=== PATIENT | male | born 1960 | race Caucasian/White ===

== ENCOUNTER 2022-03-18 13:21 | Inpatient (IN) | payer OTHER ==
[~2022-03-18] VITALS: Ht 182.9 cm; Wt 103.8 kg
[2022-03-18 13:41] LABS: Mean Corpuscular HGB Conc 34.4 g/dL (31.5-36.5); Platelet Count 315 K/mm3 (150-400); RDW Coefficient Variation 12.1 % (11.7-14.2)
[2022-03-18 13:47] LABS: BASOPHILS ABSOLUTE AUTO 0.02 K/mm3 (0.00-0.23); BASOPHILS PERCENT AUTO 0 % (0-2); EOSINOPHILS ABSOLUTE AUTO 0.01 K/mm3 (0.00-0.68); EOSINOPHILS PERCENT AUTO 0 % (0-6); Hematocrit 48.9 % (37.0-53.0); Hemoglobin 16.8 g/dL (13.5-17.5); IMMATURE GRAN PERCENT AUTO 1 % (0-1); LYMPHOCYTES ABSOLUTE AUTO 1.31 K/mm3 (0.84-5.20); LYMPHOCYTES PERCENT AUTO 7 % (21-46); MONOCYTES ABSOLUTE AUTO 0.86 K/mm3 (0.16-1.47); MONOCYTES PERCENT AUTO 5 % (4-13); Mean Corpuscular HGB 28.2 pg (26.0-34.0); Mean Corpuscular Volume 82 fL (80-100); Mean Platelet Volume 9.1 fL (9.1-12.4); NEUTROPHILS ABSOLUTE AUTO 16.01 K/mm3 (1.96-9.15); NEUTROPHILS PERCENT AUTO 87 % (41-73); RDW Standard Deviation 35.7 fL (35.1-46.3); Red Blood Cell Count 5.96 M/mm3 (4.30-5.90); White Blood Cell Count 18.31 K/mm3 (4.00-11.30)
[2022-03-18 14:05] LABS: Alanine Aminotransfer (ALT/SGP 50 U/L (12-78); Albumin, Blood 3.9 g/dL (3.4-5.0); Albumin/Globulin Ratio 0.9 (0.8-1.8); Alk Phos 172 U/L (50-136); Anion Gap 19 mmol/L (6-16); Aspartate Aminotrans (AST/SGOT 36 U/L (12-37); Bilirubin, Total 0.3 mg/dL (0.1-1.0); Blood Urea Nitrogen 18 mg/dL (8-24); Bun/Creatinine Ratio 21.9 (12.0-20.0); CO2, Blood 18 mmol/L (21-32); Calcium, Blood 9.1 mg/dL (8.5-10.1); Chloride, Blood 95 mmol/L (98-108); Creatinine, Blood 0.82 mg/dL (0.60-1.20); Ethanol (Alcohol), Blood, Med <3 mg/dL; Globulin, Blood 4.2 g/dL (2.2-4.0); Glomerular Filtration Rate 100 (60-); Glucose, Blood 577 mg/dL (70-99); Potassium, Blood 3.2 mmol/L (3.5-5.5); Sodium, Blood 132 mmol/L (136-145); Total Protein, Blood 8.1 g/dL (6.4-8.2)
[2022-03-18 14:08] LABS: U Amphetamine Screen Not Detected; U Barbituate Screen Not Detected; U Benzodiazapine Screen Not Detected; U Buprenorphine Screen Not Detected; U Cannabinoids Screen Not Detected; U Cocaine Screen Not Detected; U Methadone Screen Not Detected; U Methamphetamine Screen Not Detected; U Opiates Screen Not Detected; U Oxycodone Screen Not Detected; U Phencyclidine Screen Not Detected; U Propoxyphene Screen Not Detected
[2022-03-18 14:42] LABS: PCO2 Arterial 44.5 mmHg (35-45); PO2 Arterial 65.3 mmHg (80-100); pH Blood Arterial 7.29 (7.35-7.45)
--- NOTE | 2022-03-18 19:24 | NUR ---
ADMIT TO ICU @ 1630. PT FOUND DOWN AT HOME AND HAD TOTAL OF 5 SEIZURES PER [facility]. PT IS INTUBATED& MECHANICAL VENTILATED. PUPILS 3 MM BRISK. PT SEDATED ON PROPOFOL @ 40 MCG/KG/MIN. ROCHE TEMP 101.6-BLANKETS REMOVED FROM PT. ECG SHOWS ST WITH RATE 100-110'S. DP/PT PULSES PALPABLE. NO NOTED EDEMA. ETT 8.0/24 @ LIP TO VENT:AC 18, TV 400, PEEP 5, FIO2 50%. ASPIRATION PNEUMONIA IS SUSPECTED. DR. ELIZABETH HAS BEEN CONSULTED. SPUTUM TO SENT. LUNGS WITH COARSE RHONCHI TO UPPER LOBES AND DIMINISHED IN THE BASES. OGT TO LOW SUCTION. ABDOMEN APPEARS DISTENDED AND SEMI-FIRM. ROCHE TO BSD WITH SMALL AMOUNT OF YELLOW URINE TO UROMETER. SKIN IS PALE AND WARM WITH GOOD CAP REFILL. NO NOTED SKIN BREAKDOWN. INFUSING KCL REPLETION, LR @ 150 CC/HR, INSULIN DRIP AT 4 UNITS/HR-LAST CBG 478. [facility] PT SMOCKING MACHINE OPERATOR IS HIS SISTER KORIN. SHE HAS BEEN UPDATED TO PT STATUS. ACCORDING TO KORIN, PT DOES NOT HAVE AN ADVANCED DIRECTIVE AND SHE STATES THAT HE WOULD WANT TO REMAIN A FULL CODE. PT SISTER DID REPORT THAT PT HAS BEEN DEPRESSED AND HAS NOT BEEN TAKING HIS MEDICATIONS OR TAKING CARE OF HIMSELF FOR APROXIMATELY 5 MONTHS. ACCORDING TO PT SISTER, PT IS A TWIN AND PT TWIN SISTER 5 MONTHS AGO.
[2022-03-18 20:05] LABS: Base Excess Venous 3.2 mmol/L; Bicarbonate Venous 27.1 mmol/L (24.0-30.0); PCO2 Venous 37.1 mmHg (38-42); pH Blood Venous 7.47 (7.34-7.37)
[2022-03-18 20:23] LABS: Source, Urine Foley catheter
[2022-03-18 20:28] LABS: Bilirubin, Urine Neg (Neg); Blood, Urine 5+ (Neg); Glucose Qualitative, Urine 4+ (Neg); Ketones, Urine 3+ (Neg); Leukocyte Esterase, Urine Neg (Neg); Nitrite, Urine Neg (Neg); Protein, Urine 2+ (Neg); Specific Gravity, Urine 1.015 (1.003-1.022); Urobilinogen, Urine NORM (Normal)
[2022-03-18 20:29] LABS: Bun/Creatinine Ratio 26.1 (12.0-20.0); Calcium, Blood 9.3 mg/dL (8.5-10.1); Creatinine, Blood 0.88 mg/dL (0.60-1.20); Magnesium, Blood 2.3 mg/dL (1.6-2.4); Potassium, Blood 3.6 mmol/L (3.5-5.5)
[2022-03-18 20:33] LABS: Appearance, Urine Clear (Clear); Color, Urine Yellow (P-Yellow)
[2022-03-18 20:36] LABS: Bacteria Not Seen /hpf; Red Blood Cells, Urine TNTC /hpf (0-2); Squamous Epithelial Cells Not Seen /hpf (Few); Uric Acid Crystals Mod /hpf; White Blood Cells, Urine Not Seen /hpf (0-5)
[2022-03-19 03:40] LABS: Hemoglobin 15.6 g/dL (13.5-17.5); Mean Corpuscular HGB 28.4 pg (26.0-34.0); Mean Corpuscular HGB Conc 35.5 g/dL (31.5-36.5); Mean Corpuscular Volume 80 fL (80-100); Mean Platelet Volume 8.8 fL (9.1-12.4); Platelet Count 213 K/mm3 (150-400); RDW Coefficient Variation 12.2 % (11.7-14.2); RDW Standard Deviation 35.2 fL (35.1-46.3); White Blood Cell Count 13.84 K/mm3 (4.00-11.30)
--- NOTE | 2022-03-19 05:41 | NUR ---
SHIFT SUMMERY PT CONTINUES TO BE VENTILATED, OXYGEN SAT HAVE REMAINED >95% THROUGHOUT THE NIGHT. PT IS SR ON THE PACK OPERATOR, BP WNL. HE HAS BEEN FEBRILE BUT LAST TEMP WAS IMPROVING AT 99.6. HE HAS A ROCHE CATH DRAINING DARK YELLOW URINE. UA SENT TO LAB. HE IS SEDATED W/PROPOFOL AT THIS TIME. HE HAS AN OG TUBE THAT IS CLAMPED. C-COLLAR IN PLACE WAITING MD APPROVAL FOR REMOVAL. PT HAD NO SEIZURE ACTIVITY OVERNIGHT. NO ACUTE CHANGES AND NO ACUTE DISTRESS THIS SHIFT.
[2022-03-19 05:42] LABS: Bun/Creatinine Ratio 18.9 (12.0-20.0); Calcium, Blood 8.6 mg/dL (8.5-10.1); Creatinine, Blood 1.69 mg/dL (0.60-1.20); Potassium, Blood 3.7 mmol/L (3.5-5.5)
--- NOTE | 2022-03-19 08:00 | NUR ---
PT REMAINS SEDATED, INTUBATED, AND RESTRAINED. C-COLLAR REMAINS IN PLACE. PT GIVEN SEDATION VACATION X 30 MINUTES. PT OPENING HIS EYES, BUT NOT TO COMMAND. PT PULLING ON RESTRAINTS AND MOVING LOWER EXTREMITIES, BUT NOT TO COMMANDS. PT STARTED COUGHING AND WAS NOT COMPLIANT WITH VENTILATOR-PROPOFOL DRIP RESUMED @ 40 MCG/KG/MIN. ECG SHOWS SR TO ST WITH RATE 90-100'S. SBP TRENDING 140-150'S. TEMP 99.7. NO NOTED EDEMA. DP/PT PULSES 2+. ETT TO VENT:AC18, TV 500, PEEP 5, FIO2 30% LUNGS WITH COARSE RHONCHI TO UPPER LOBES AND DIMINISHED IN THE BASES. ETT SUCTION PRODUCTIVE OF LARGE AMOUNT OF THICK, BROWN SECRETIONS-SPUTUM SENT. OGT TO LOW CONTINUOUS SUCTION AND SCANT BROWN, LIQUID DRAINAGE. ABDOMEN OBESE, BUT SOFT. ROCHE TO BSD WITH ADEQUATE AMOUNT OF YELLOW URINE TO UROMETER. SKIN IS C/D/I. CBG-395 COVERED PER SLIDING SCALE. WILL CONTACT DR. CHICAS TO DISCUSS INCREASING LONG ACTING INSULIN.
--- NOTE | 2022-03-19 10:00 | NUR ---
CBG 334 COVERED PER SLIDING SCALE. DR. CHICAS NOTIFIED-PLAN TO INCREASE LONG ACTING INSULIN. PT SISTER KORIN IN FOR VISIT-FULL UPDATE GIVEN.
--- NOTE | 2022-03-19 11:45 | NUR ---
PT HAS BEEN OFF OF PROPOFOL SINCE 1114. PT IGIUGIG ACCORDING TO HIS SISTER KORIN. PT OPENED HIS EYES TO VOICE AND SEEMED TO TRACK, BUT NOT FOLLOWING COMMANDS. PT COUGHING AND GAGGING ON ETT. DR. GAGE AT BEDSIDE-PT PLACED ON PS 7, PEEP 5, FIO2 30%-SATS>90% .CBG 295 COVERED PER SLIDING SCALE AND LANTUS 20 UNITS SC GIVEN-SEE EMAR. OGT NOTED WITH DARK, BROWN/BLACK LIQUID DRAINAGE. ETT SUCTION CONTINUES TO BE PRODUCTIVE OF LARGE AMOUNT OF THICK, BROWN SPUTUM.
--- NOTE | 2022-03-19 12:15 | NUR ---
DR. GAGE AT BEDSIDE. PT EYES OPEN AND HE CONTINUES TO TRACK, BUT HE DOES NOT FOLLOW COMMANDS. PT PULLING ON RESTRAINTS AND REACHING TOWARDS ETT. HR 120-130'S AND SBP 200'S. SPO2 DROPPED 85% ON PS 7. VENT SETTINGS CHANGED BACK TO AC 18, TV 500, PEEP 5 , FIO2 35%. PROPOFOL DRIP RESUMED @ 50 MCG/KG/MIN AND PT MED WITH FENTANYL 50 MCG IVP X 1. PT APPEARED TO HAVE A SEIZURE-UPPER EXTREMITIES MOVING IN DECEREBRATE MANOR AND TONIC/CLONIC MOVEMENT NOTED. PT MED WITH ATIVAN 2 MG IVP X 1.
--- NOTE | 2022-03-19 14:00 | NUR ---
PT RESTING QUIETLY ON VENT WITH PROPOFOL @ 50 MCG/KG/MIN. NO FURTHER SEIZURE ACTIVITY NOTED. PT SISTER HIM REMAINS AT BEDSIDE.
--- NOTE | 2022-03-19 16:00 | NUR ---
PT REMAINS INTUBATED AND SEDATED ON PROPOFOL @ 50 MCG/KG/MIN. NO FURTHER SEIZURE ACTIVITY NOTED. PT REMAINS FEBRILE. ECG CONTINUES SR TO ST WITH RATE 90-110'S. SBP TRENDING 100-110'S. LUNGS REMAIN COARSE TO UPPER LOBES AND DIMINISHED IN THE BASES. SATS>90% ON FIO2 30%. ETT SUCTION CONTINUES TO BE PRODUCTIVE OF LARGE AMOUNT OF THICK, BROWN SECRETIONS. OGTF VHP @ 25 CC/HR WITH H20 30 CC FLUSH EVERY 4 HOURS.
--- NOTE | 2022-03-19 18:00 | NUR ---
SBP TRENDING IN THE 90'S. PROPOFOL DRIP DECREASED TO 40 MCG/KG/MIN. CBG 212 COVERED PER SLIDING SCALE. CBG EVERY 6 HOURS NOW. ROCHE OUTPUT 350 CC THIS SHIFT.
[2022-03-20 03:15] LABS: BASOPHILS ABSOLUTE AUTO 0.07 K/mm3 (0.00-0.23); BASOPHILS PERCENT AUTO 1 % (0-2); EOSINOPHILS ABSOLUTE AUTO 0.15 K/mm3 (0.00-0.68); EOSINOPHILS PERCENT AUTO 1 % (0-6); Hematocrit 41.3 % (37.0-53.0); Hemoglobin 14.3 g/dL (13.5-17.5); IMMATURE GRAN ABSOLUTE AUTO 0.03 K/mm3 (0.00-0.10); IMMATURE GRAN PERCENT AUTO 0 % (0-1); LYMPHOCYTES ABSOLUTE AUTO 1.92 K/mm3 (0.84-5.20); LYMPHOCYTES PERCENT AUTO 16 % (21-46); MONOCYTES ABSOLUTE AUTO 1.12 K/mm3 (0.16-1.47); MONOCYTES PERCENT AUTO 9 % (4-13); Mean Corpuscular HGB 28.1 pg (26.0-34.0); Mean Corpuscular HGB Conc 34.6 g/dL (31.5-36.5); Mean Corpuscular Volume 81 fL (80-100); Mean Platelet Volume 8.9 fL (9.1-12.4); NEUTROPHILS ABSOLUTE AUTO 8.83 K/mm3 (1.96-9.15); NEUTROPHILS PERCENT AUTO 73 % (41-73); Platelet Count 200 K/mm3 (150-400); RDW Coefficient Variation 12.2 % (11.7-14.2); Red Blood Cell Count 5.09 M/mm3 (4.30-5.90); White Blood Cell Count 12.12 K/mm3 (4.00-11.30)
[2022-03-20 05:37] LABS: pH Blood Arterial 7.36 (7.35-7.45)
[2022-03-20 05:38] LABS: PCO2 Arterial 35.2 mmHg (35-45); PO2 Arterial 81.8 mmHg (80-100)
--- NOTE | 2022-03-20 08:00 | NUR ---
Assumed care for pt at 0730. He is intubated w/ 8.0 ETT @ 24 cm at teeth. Vent settings 18/500/5/30%. Receiving Propofol gtt @ 40 mcg/kg/min. Vital HP tube feed @ 25 ml/hr w/ goal of 45 ml/hr, 30 ml flush q4hr. Pickard catheter remains in place. x2 peirpheral IVs in right arm. Sedation vacation attempted twice yesterday.
--- NOTE | 2022-03-20 09:45 | NUR ---
Pt on sedation vacation at 0921 w/ vent placed on Spontaneous mode and Propofol stopped.
[2022-03-20 10:24] LABS: Bun/Creatinine Ratio 13.8 (12.0-20.0); Calcium, Blood 8.8 mg/dL (8.5-10.1); Creatinine, Blood 3.77 mg/dL (0.60-1.20); Magnesium, Blood 2.6 mg/dL (1.6-2.4); Phosphorus, Blood 5.6 mg/dL (2.5-4.9); Potassium, Blood 3.6 mmol/L (3.5-5.5)
--- NOTE | 2022-03-20 11:00 | NUR ---
Pt reamins on Spontaneous vent setting and propofol has remained off. He is following commands, will squeeze both hands, track with his eyes and wiggle his toes. Plan is to extubate pt.
--- NOTE | 2022-03-20 11:59 | NUR ---
Pt successfully extubated at 1152. Tube feed had been stopped prior to extubation. Pt A&Ox3 and protecting his airway, strong cough w/ brown sputum. Placed on 3 lpm o2 via NC.
--- NOTE | 2022-03-20 17:51 | NUR ---
Pt was extubated at noon today and placed on 3 lpm o2 via NC; his OG tube was removed at the same time and tube feed had been stopped prior to removal. Pt protected his airway post-extubation and remained on 3 lpm o2 via NC for the rest of the shift. Continued to receive LR gtt @ 150 ml/hr. Pt urinated >1200 ml during dayshift today. No seizure-activity today.
--- NOTE | 2022-03-20 19:35 | NUR ---
ASSUMPTION OF CARE/ASSESSMENT: ASSUMED CARE OF PT AT 1900. PT IS A&O X 3; FOLLOWING COMMANDS. PT IS SOFT SPOKEN AND SLOW TO RESPOND. PT CURRENTLY ON NC @ 4LPM WITH LUNGS SOUNDS CLEAR, SPO2 94<, RR 20-26, AND NO C/O SOB. PT SINUS TACHYCARDIA ON MONITOR WITH HR IN THE 90-100'S, SBP 140-150'S, AND NO C/O CHEST PAIN AT THIS TIME. PT HAS HYPOACTIVE BS IN ALL QUADRANTS. PT IS NPO R/T FAILED SWALLOW EVAL LAST SHIFT. PT REQUESTED FOOD/DRINK AND EDUCATED ON NPO STATUS, PT UNDERSTANDS AND COOPERATVIE WITH NPO STATUS. PT HAS ROCHE IN PLACE AND DRAINING TO GRAVITY; URINE MICHEL, CLEAR. PPP X 4, 20 G PIV TO RH AND RAC. PT HAS LR GTT @ 2150 MLS/HR. BED LOWERED, CALL LIGHT IN REACH, WILL CONTINUE TO MONITOR.
[2022-03-21 04:04] LABS: BASOPHILS ABSOLUTE AUTO 0.03 K/mm3 (0.00-0.23); BASOPHILS PERCENT AUTO 0 % (0-2); EOSINOPHILS ABSOLUTE AUTO 0.15 K/mm3 (0.00-0.68); EOSINOPHILS PERCENT AUTO 2 % (0-6); Hematocrit 42.7 % (37.0-53.0); Hemoglobin 14.7 g/dL (13.5-17.5); IMMATURE GRAN ABSOLUTE AUTO 0.03 K/mm3 (0.00-0.10); IMMATURE GRAN PERCENT AUTO 0 % (0-1); LYMPHOCYTES ABSOLUTE AUTO 1.05 K/mm3 (0.84-5.20); LYMPHOCYTES PERCENT AUTO 13 % (21-46); MONOCYTES ABSOLUTE AUTO 0.78 K/mm3 (0.16-1.47); MONOCYTES PERCENT AUTO 9 % (4-13); Mean Corpuscular HGB 27.9 pg (26.0-34.0); Mean Corpuscular HGB Conc 34.4 g/dL (31.5-36.5); Mean Corpuscular Volume 81 fL (80-100); Mean Platelet Volume 8.8 fL (9.1-12.4); NEUTROPHILS ABSOLUTE AUTO 6.26 K/mm3 (1.96-9.15); NEUTROPHILS PERCENT AUTO 75 % (41-73); Platelet Count 190 K/mm3 (150-400); RDW Coefficient Variation 11.9 % (11.7-14.2); RDW Standard Deviation 35.3 fL (35.1-46.3); Red Blood Cell Count 5.26 M/mm3 (4.30-5.90)
[2022-03-21 04:49] LABS: Bun/Creatinine Ratio 16.7 (12.0-20.0); Calcium, Blood 8.9 mg/dL (8.5-10.1); Creatinine, Blood 3.11 mg/dL (0.60-1.20); Magnesium, Blood 2.5 mg/dL (1.6-2.4); Potassium, Blood 3.2 mmol/L (3.5-5.5)
--- NOTE | 2022-03-21 06:43 | NUR ---
SHIFT SUMMARY: NO ACUTE CHANGES OVER NIGHT. PT SPEECH SLOWLY IMPROVED OVER NIGHT WITH ARTICULATION. PT ADAMENT ABOUT GETTING OUT OF BED AND EDUCATED ABOUT BEDREST THROUGHOUT THE NIGHT. PT HAD 2900 URINE OUTPUT. PT STATES THAT HE NEEDS TO HAVE A BOWEL MOVEMENT BUT CANNOT GO TO THE BATHROOM ON THE BEDPAN; ATTENDS IN PLACE AND NO BOWEL MOVEMENT THIS SHIFT. BED LOWERED, CALL LIGHT IN REACH, WILL CONTINUE TO MONITOR UNTIL ONCOMING RN ARRIVES.
--- NOTE | 2022-03-21 14:48 | NUR ---
business office technician has arrived and is actively running the test at bedside. Pt has also worked w/ Speech and PT/OT.
--- NOTE | 2022-03-21 17:20 | NUR ---
software technical lead unable to complete test due to computer issues; apparently the program on her computer recived an update yesterday but would not complete the test. She was unable to reach tech support this late in the evening. Will have to re-attempt at a later date.
--- NOTE | 2022-03-21 18:42 | NUR ---
Pt worked w/ Speech, PT and OT today. He stood and pivoted w/ a walker and used the bedside commode, he remains a x2 assist due to weakness, poor balance and impulsivity. He had a large BM this morning and removed his own silva around 1000 this morning. He has used the urinal throughout the day w/o difficulty. received a bed bath this evening. Attempted EEG this afternoon w/o success, [employer] network control technician will return tomorrow to attempt again. Notified Dr Winters. Also increased pt Glargine dosing today due to persistent hyperglycemia.
--- NOTE | 2022-03-22 01:00 | NUR ---
PT UPDATE: MIDNIGHT CBG CHECK CAME BACK AT 439. DR MUNIZ CALLED AND VERBAL ORDERS FOR 18 UNITS ONE TIME DOSE OF HUMALOG RECIEVED, WELL TO [facility] AGAIN IN 2 HOURS. WILL CONTINUE TO MONITOR
[2022-03-22 03:42] LABS: Hematocrit 42.8 % (37.0-53.0); Hemoglobin 14.7 g/dL (13.5-17.5); Mean Corpuscular HGB 27.9 pg (26.0-34.0); Mean Corpuscular HGB Conc 34.3 g/dL (31.5-36.5); Mean Corpuscular Volume 81 fL (80-100); Mean Platelet Volume 8.7 fL (9.1-12.4); Platelet Count 196 K/mm3 (150-400); RDW Coefficient Variation 11.9 % (11.7-14.2); RDW Standard Deviation 35.6 fL (35.1-46.3); Red Blood Cell Count 5.27 M/mm3 (4.30-5.90); White Blood Cell Count 6.39 K/mm3 (4.00-11.30)
[2022-03-22 04:05] LABS: Bun/Creatinine Ratio 21.9 (12.0-20.0); Calcium, Blood 9.2 mg/dL (8.5-10.1); Creatinine, Blood 1.6 mg/dL (0.60-1.20); Magnesium, Blood 2.1 mg/dL (1.6-2.4); Phosphorus, Blood 2.3 mg/dL (2.5-4.9)
--- NOTE | 2022-03-22 06:42 | NUR ---
SHIFT SUMMARY: NO ACUTE CHANGES THIS SHIFT. PT HAS BEEN USING THE URINAL WITH SBA AT THE END OF THE BED; ABOUT 1200 URINE OUTPUT THIS SHIFT. PT HAS A LARGE BOWEL MOVEMENT THIS SHIFT WITH A 2 PERSON ASSIST TO THE BEDSIDE COMMODE. PT REMAINS IMPLULSIVE AND ATTEMPTS TO NEGOTIATE WITH STAFF REGARDING MORE INDEPENDENCE WITH ADL'S BUT PT STILL WEAK AND HIGH FALL RISK. PT NOW ON RA AND SPO2 MAINTAINING 97<. PT DOES NOT USE CALL LIGHT AND CONTINUES TO TRY AND GET OUT OF BED WITHOUT ASSISTANCE. PT HAS BEEN DRINKING LOTS OF NECTAR THICK WATER. WILL CONTINUE TO MONITOR UNTIL ONCOMING RN ARRIVES.
--- NOTE | 2022-03-22 08:00 | NUR ---
Assumed care for pt at 0700. Pt is A&Ox4, GCS 15, is now on room air and maintaing his 02 saturation. LR gtt @ 150 ml/hr, K Phos replacment ordered, waiting for pharmacy to prepare. Plan to downgrade pt status today.
--- NOTE | 2022-03-22 13:26 | NUR ---
technical spec Una is at bedside. Pt is sitting upright in a chair for both lunch and this procedure.
--- NOTE | 2022-03-22 14:45 | NUR ---
[employer] rep called and advised that pt has had only "a few" discharge from his pacemaker, that the base rate is set to 50 and that it is "working beautifully."
--- NOTE | 2022-03-22 15:30 | NUR ---
EEG test completed successfully.
--- NOTE | 2022-03-22 18:00 | NUR ---
Dr. Wolff at bedside evaluating PleurX. He removed some sutures and redressed the PleurX. It remains in place.
--- NOTE | 2022-03-23 05:28 | NUR ---
SHIFT SUMMARY: NO ACUTE CHANGES THIS SHIFT. PT REMAINS A&O X 4. PT ATTEMPTS TO GET OUT OF BED WITHOUT SBA, REMAINS ON CENTRAL MONITORING. PT ON RA WITH SPO2 96<, CLEAR LUNG SOUNDS. PT SBP 150'S AND HR IN THE 80'S. PT PERIODICALLY INCONTINUENT WITH BRIEF IN PLACE; PT SBA TO TOILET WITH WALKER AND MOBILITY IS IMPROVING. PT SPEECH IMPROVING FROM LAST SHIFT. PT VERY IMPATIENT REGARDING DISCHARGES AND CONTINUES TO STATE DESIRES TO GO HOME. PT REMAINS AFEBRILE. WILL CONTINUE TO MONITOR UNTIL ONCOMING RN ARRIVES.
--- NOTE | 2022-03-23 08:20 | NUR ---
Pt is now under medical floor orders, w/ tele removed as well. Pt still receiving LR @ 150 ml/hr. Pt remains impulsive, often being found at the side of the bed and not calling for assistance. Still a x1 assist when ambulating w/ a walker due to balance.
[2022-03-23 08:51] LABS: BASOPHILS ABSOLUTE AUTO 0.02 K/mm3 (0.00-0.23); BASOPHILS PERCENT AUTO 0 % (0-2); EOSINOPHILS ABSOLUTE AUTO 0.25 K/mm3 (0.00-0.68); EOSINOPHILS PERCENT AUTO 4 % (0-6); Hematocrit 38.7 % (37.0-53.0); Hemoglobin 13.6 g/dL (13.5-17.5); IMMATURE GRAN ABSOLUTE AUTO 0.01 K/mm3 (0.00-0.10); IMMATURE GRAN PERCENT AUTO 0 % (0-1); LYMPHOCYTES ABSOLUTE AUTO 1.22 K/mm3 (0.84-5.20); LYMPHOCYTES PERCENT AUTO 21 % (21-46); MONOCYTES PERCENT AUTO 10 % (4-13); Mean Corpuscular HGB 28.3 pg (26.0-34.0); Mean Corpuscular HGB Conc 35.1 g/dL (31.5-36.5); Mean Corpuscular Volume 81 fL (80-100); Mean Platelet Volume 8.8 fL (9.1-12.4); NEUTROPHILS ABSOLUTE AUTO 3.66 K/mm3 (1.96-9.15); NEUTROPHILS PERCENT AUTO 64 % (41-73); Platelet Count 169 K/mm3 (150-400); RDW Coefficient Variation 11.3 % (11.7-14.2); RDW Standard Deviation 33.4 fL (35.1-46.3); Red Blood Cell Count 4.81 M/mm3 (4.30-5.90); White Blood Cell Count 5.76 K/mm3 (4.00-11.30)
[2022-03-23 09:05] LABS: Bun/Creatinine Ratio 18.1 (12.0-20.0); Creatinine, Blood 1.05 mg/dL (0.60-1.20); Magnesium, Blood 1.7 mg/dL (1.6-2.4); Phosphorus, Blood 3.1 mg/dL (2.5-4.9)
--- NOTE | 2022-03-23 12:25 | NUR ---
Called report to [facility] DOBB[facility] for room 359. Speech is currently at bedside evaluating the pt; he will be transported afterwards.
--- NOTE | 2022-03-23 14:16 | NUR ---
REPORT RECEIVED FROM DUNCAN DOBBINS. PT TRANSFERRED TO ROOM 359 VIA WC AND WAS A/O X 4 STANDBY ASSIST UPON ARRIVAL. PT ABLE TO AMBULATE STEADY ON FEET WITH GB. PT REPORTED HIS WAS WRONG WHEN QUESTIONED. PT WAS ACTUALLY BORN IN 1960. VERIFIED DATE WITH RECORDS FROM THE [facility]. NOTIFIED ADMITTING OF ERROR. NEW ARM BAND PRINTED FOR PATIENT AND PLACED. PT DENIES PAIN, NAUSEA, SOB, DIZZINESS. PT SOON AFTER ARRIVAL BEGAN WORKING WITH OT. PT DENIED ANY OTHER CONCERNS OR NEEDS AT THIS TIME.
--- NOTE | 2022-03-23 16:54 | NUR ---
SHIFT SUMMARY: PT A/O X 4, STANDBY ASSIST. PT PLEASANT AND COOPERATIVE WITH CARE. PT REPORTED "MIGRAINE HEADACHE THIS AFTERNOON AND WAS GIVEN TYLENOL WHICH WAS INEFFECTIVE. PT COULD NOT HAVE IMITREX UNTIL 1800 PER PHARMACY [facility] AND PT NOTIFIED OF THIS. PT REPORTED HE COULD WAIT UNTIL 1800 FOR MEDICATION. PT HAS HAD PT/OT SESSION TODAY. BS STILL ELEVATED. VISITING WITH FAMILY AT THIS TIME. PER PT/FAMILY THEY HAVE DECIDED PT SHOULD GO TO [facility] INSTEAD OF [facility]. INFORMED THEM TO PLEASE REACH OUT TO CARE MANAGEMENT IN THE MORNING AND I WOULD NOTIFY RN OTOLARYNGOLOGY AND PLACE THIS NOTE FOR MD. PT WILL NEED EDUCATION ON DIABETIC MANAGEMENT AND ON INSULIN ADMINISTRATION AND PRESCRIPTIONS FOR ALL SUPPLIES IF PT IS TO BE DISCHARGED WITH INSULIN MEDICATIONS.
--- NOTE | 2022-03-24 06:14 | NUR ---
PATIENT ALERT AND ORIENTED WITH SHORT TERM MEMORY LOSS. PATIENT UNSTEADY ON FEET AND BECOMES AGITATED WHEN STAFF REDIRECTS HIM. PATIENT DOES NOT WANT TO FOLLOW DIRECTION AND OVERESTIMATES INDEPENDENCE. I EXPLAINED THAT WE ARE ONLY REDIRECTING FOR HIS SAFETY AND THAT STAFF NEEDS TO BE PRESENT WHEN HE NEEDS TO GET UP TO USE THE RESTROOM. PATIENT DENIES REDIRECTION AND DENIES THAT HE IS UNSTEADY ON FEET. PATIENT ALSO BLOCKED HIS DOOR WITH TRASH CANS AND WALKER.
[2022-03-24] MEDS ORDERED: LEVE500 PO (15:54)
[2022-03-24] MEDS ORDERED: LISI20 PO (15:54)
[2022-03-24] MEDS ORDERED: HYDCHL25 PO (15:55)
[2022-03-24] MEDS ORDERED: METO25ER PO (15:55)
[2022-03-24] MEDS ORDERED: JARDIANCE25 MG PO (15:57)
[2022-03-24] MEDS ORDERED: NORVASC10 MG PO (15:57)
[2022-03-24] MEDS ORDERED: METF500 PO (15:58)
[2022-03-24] MEDS ORDERED: SERT50 PO (15:58)
[2022-03-24] MEDS ORDERED: IMITREX50 M2 PO (15:59)
--- NOTE | 2022-03-24 17:59 | NUR ---
SHIFT SUMMARY: PATIENT A&OX4. PLEASANT AND COOPERATIVE c CARE. USES CALL LIGHT APPROPRIATELY AND ABLE TO ADVOCATE FOR HIS NEEDS. 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 DENIES CP/CHEST PRESSURE. REPORTS HEADACHE. MEDICATED X1 c IMITREX PER EMAR. PATIENT REPORTS HAVING ADEQUATE RELIEF. PATIENT WORKS c PT MOBILITY TODAY AND TOLERATED WELL. PT RECOMMENDED OUTPATIENT PT. PATIENT BS THIS SHIFT RANGES 240'S-290'S. RECEIVED INSULIN COVERAGE PER EMAR SLIDING SCALE. DENIES SOB, N/V. AMBULATES TO BATHROOM AND BACK IN BED c SBA. VITAL SIGNS REVIEWED. PATIENT IS DISCHARGING HOME. ALL DISCHARGE PAPERS COMPLETE. RX WAS CARTER TO [facility] BY [place] CUTTER, ELENA HIGGINS. VITAL SIGNS REVIEWED. AWAITING FOR DAUGHTER TO PICK PATIENT UP. CALL LIGHT IN REACH.
--- NOTE | 2022-03-24 19:01 | NUR ---
DISCHARGE NOTES: PATIENT DISCHARGE HOME. DISCHARGE INSTRUCTION PACKET AND HARD PRESCRIPTION SCRIPT GIVEN TO DAUGHTER QUIN. EDUCATE PATIENT AND DAUGHTER REGARDING PATIENT ADMITTING DX, S/S, TX, AND NEW PRESCRIBED MEDICATIONS. DAUGHTER EXPRESS CONCERN c SOME OF MEDICATIONS WAS NOT LISTED ON PATIENT DISCHARGE MEDS. CALLED DR. WARD REGARDING PATIENT CONCERNS. RECEIVED ORDER FROM DR. WARD REGARDING FLOMAX 0.4 MG. PHARMACY ALREADY CLOSED THIS TIME. THIS RN WILL CALLED THE PHARMACY TOMORROW REGARDING THIS ORDER. DAUGHTER STATED UNDERSTANDING AND NO FURTHER CONCERN. PATIENT REQUESTING TO TAKE A SHOWER FIRST BEFORE GOING HOME. EDUCATE PATIENT TO USE THE CALL LIGHT WHEN HE IS READY TO GO. REPORT GIVEN TO NOC RNKENDELL.
[2022-03-28 08:50] LABS: Calcium, Ionized (POC) 1.14 mmol/L (1.10-1.46); Chloride (POC) 94 mmol/L (98-108); Creatinine (POC) 0.9 mg/dL (0.8-1.3); Glucose (ISTAT POC) 546 mg/dL (70-99); Hemoglobin (POC) 17.7 g/dL (13.5-17.5); Potassium (POC) 3.1 mmol/L (3.5-5.5); Sodium (POC) 136 mmol/L (135-148); Total CO2 (POC) 21 mmol/L (21-32)
== END 2022-03-24 19:29 | disposition home or self-care (01) | DRG 208 ==
LOC: ER 13:21 → ICUW 16:00 → EDBD 16:00 → MEDS 16:00 → ICUW 17:15 → MEDS 03-23 13:15
PROVIDERS: Emergency Medicine; Internal Medicine; Internal Medicine Critical Care Medicine; ADMIT Internal Medicine
PROC: 5A1945Z Respiratory Ventilation, 24-96 Consecutive Hours (ICD-10-PCS; principal; 2022-03-18)
PROC: 0BH17EZ Insertion of Endotracheal Airway into Trachea, Via Natural or Artificial Opening (ICD-10-PCS; 2022-03-18)
DX: J96.01 Acute respiratory failure with hypoxia (principal); E11.10 Type 2 diabetes mellitus with ketoacidosis without coma; G93.1 Anoxic brain damage, not elsewhere classified; I10 Essential (primary) hypertension; G40.401 Other generalized epilepsy and epileptic syndromes, not intractable, with status epilepticus; Z51.5 Encounter for palliative care; F32.A Depression, unspecified; F90.9 Attention-deficit hyperactivity disorder, unspecified type; F41.9 Anxiety disorder, unspecified; N40.0 Benign prostatic hyperplasia without lower urinary tract symptoms; K21.9 Gastro-esophageal reflux disease without esophagitis; E78.5 Hyperlipidemia, unspecified; M54.50 Low back pain, unspecified; G43.909 Migraine, unspecified, not intractable, without status migrainosus; R41.3 Other amnesia; E11.65 Type 2 diabetes mellitus with hyperglycemia; G47.33 Obstructive sleep apnea (adult) (pediatric); F43.10 Post-traumatic stress disorder, unspecified; B95.62 Methicillin resistant Staphylococcus aureus infection as the cause of diseases classified elsewhere; Z95.0 Presence of cardiac pacemaker; Z79.4 Long term (current) use of insulin; Z98.890 Other specified postprocedural states; Z79.51 Long term (current) use of inhaled steroids; Z79.811 Long term (current) use of aromatase inhibitors; Z79.84 Long term (current) use of oral hypoglycemic drugs; Z79.899 Other long term (current) drug therapy
CPT/HCPCS: 31500; 36415; 36600; 51702; 70450; 71045; 72125; 76770; 80047; 80048; 80053; 81001; 82010; 82550; 82803; 82947; 83735; 83880; 84100; 84145; 84484; 85014; 85025; 85027; 87070; 87077; 87147; 87186; 87205; 92526; 92610; 93005; 93010; 94002; 94003; 95819; 96365-59; 96375-59; 97112; 97116; 97162; 97166; 97530; 97535; 99291-25; A9270; C9113; G0480; J0330; J0696; J1650; J1815; J1953; J2060; J2704; J3010; J3480; J7030; J7050; J7060; J7120; Q2009